=== PATIENT | female | born 1985 | race Caucasian/White ===

== ENCOUNTER → 2021-03-17 11:43 | Outpatient (CLI) | payer OTHER, SELFPAY ==
[2021-03-17 19:51] LABS: Alanine Aminotransferase 22 IU/L (<35); Albumin 4.3 g/dL (3.5-5.0); Albumin Globulin Ratio 1.4 (1.0-2.8); Alkaline Phosphatase 59 U/L (38-126); Aspartate Aminotransferase 29 IU/L (14-36); BUN Creatinine Ratio 19.2 (6-22); Bilirubin Total 0.5 mg/dL (0.2-1.3); Blood Urea Nitrogen 14 mg/dL (7-17); Calcium 10.1 mg/dL (8.4-10.2); Carbon Dioxide 28 mmol/L (22-32); Chloride 102 mmol/L (98-107); Estimated Glomerular Filt Rate > 60.0 mL/min (>60); Glucose 86 mg/dL (70-100); HEMOLYSIS < 15 (0-50); Potassium 4.8 mmol/L (3.4-5.1); Sodium 139 mmol/L (137-145); Total Protein 7.3 g/dL (6.3-8.2)
[2021-03-17 20:01] LABS: Follicle Stimulating Hormone 2.16 mIU/mL
== END ==
PROVIDERS: PCP Physician Assistant Medical; Referring Provider Physician Assistant Medical; Visit Provider Physician Assistant Medical
DX: Z86.2 Personal history of diseases of the blood and blood-forming organs and certain disorders involving the immune mechanism (principal); Z13.29 Encounter for screening for other suspected endocrine disorder; R79.89 Other specified abnormal findings of blood chemistry
CPT/HCPCS: 80053; 82306; 83001

== ENCOUNTER → 2021-04-12 11:58 | Outpatient (CLI) | payer OTHER, SELFPAY ==
[2021-04-12 18:48] LABS: Add Manual Diff / Slide Review NO; Basophils Absolute Auto 0 /uL (0-100); Basophils Percent Auto 0.7 % (0-2); Eosinophils Absolute Auto 200 /uL (0-450); Eosinophils Percent Auto 2.8 % (2-4); Hematocrit 43.4 % (36-46); Hemoglobin 14.7 g/dL (12.0-16.0); Lymphocytes Absolute Auto 2300 /uL (1100-4500); Lymphocytes Percent Auto 34.1 % (25-40); Mean Corpuscular Hemoglobin 30.9 PG (26-34); Mean Corpuscular Volume 90.9 fL (80-100); Monocytes Absolute Auto 500 /uL (0-900); Monocytes Percent Auto 7.6 % (3-14); Neutrophils Absolute Auto 3800 /uL (1500-7000); Neutrophils Percent Auto 54.8 % (50-75); Platelet Count 215 X10^3/uL (150-400); Red Blood Cell Count 4.77 X10^6/uL (4.0-5.2); Red Cell Distribution Width 13.3 % (11.6-14.8); White Blood Cell Count 6.9 X10^3/uL (4.5-11.0)
[2021-04-12 19:23] LABS: Luteinizing Hormone 1.43 mIU/mL
[2021-04-12 19:30] LABS: TSH w/ Reflex to FT4 2.97 uIU/mL (0.47-4.68)
== END ==
PROVIDERS: PCP Physician Assistant Medical; Visit Provider Obstetrics & Gynecology
DX: Z31.69 Encounter for other general counseling and advice on procreation (principal); Z13.29 Encounter for screening for other suspected endocrine disorder; R79.89 Other specified abnormal findings of blood chemistry; Z13.0 Encounter for screening for diseases of the blood and blood-forming organs and certain disorders involving the immune mechanism; Z13.228 Encounter for screening for other metabolic disorders; Z86.2 Personal history of diseases of the blood and blood-forming organs and certain disorders involving the immune mechanism
CPT/HCPCS: 83002; 84443; 85025; 86762; 86777

== ENCOUNTER → 2021-08-26 12:40 | Outpatient (CLI) | payer OTHER, SELFPAY ==
--- NOTE | 2021-08-26 12:41 | DI.US.S_ITS ---
PROCEDURE: US THYROID INDICATIONS: Progressive obstructive symptoms to the neck TECHNIQUE: Real-time scanning was performed of the thyroid gland, with image documentation. COMPARISON: None. FINDINGS: Right: Thyroid lobe measures 4.7 x 1.2 x 1.2 cm, and is homogeneous in echotexture. Left: Thyroid lobe measures 5.0 x 1.1 x 1.1 cm, and is homogenous in echotexture. Sub 5 mm thyroid nodule. Isthmus: 2.4 mm thick. IMPRESSION: Sub 5 mm left thyroid nodule; otherwise normal thyroid. Dictated by: Cole Bullard Naa Interpreted: Mikal Cavazos MD on 08/26/2021 at 13:22 Transcribed by: AIDEN on 08/26/2021 at 13:24 Approved by: Mikal Cavazos M.D. on 08/29/2021 at 9:14
== END ==
PROVIDERS: PCP Physician Assistant Medical; Referring Provider Family Medicine; Visit Provider Family Medicine
DX: Z13.29 Encounter for screening for other suspected endocrine disorder (principal); E04.1 Nontoxic single thyroid nodule; M54.2 Cervicalgia
CPT/HCPCS: 76536